=== PATIENT | female | born 1960 | race Caucasian/White ===

== ENCOUNTER 2023-12-29 07:58 | Emergency (ER) | payer OTHER, SELFPAY ==
[2023-12-29 08:11] VITALS: BP 137/86
--- NOTE | 2023-12-29 08:27 | ED.GENMED ---
History of Present Illness
<Telly Troncoso PA-C - Last Filed: 12/29/23 10:04>
General
Chief Complaint: Skin Surface Trauma
Source: patient
Time Seen by Provider: 12/29/23 08:30
Travel History
Have you had any contact with someone who has COVID-19?: No
Do you have any symptoms of coronavirus? Fever > 100 degrees, chills, cough, shortness of breath, sore throat, loss of taste or smell, muscle aches, or headache?: No
History of Present Illness
History of Present Illness:
63-year-old female presenting to the emergency department for evaluation after she excellently cut her left little finger on a slicer about 20 minutes prior to arrival to the emergency department. Patient is right-hand dominant. Tetanus vaccine is
up-to-date. No other injuries were sustained. Patient notes continued bleeding on arrival but states bleeding is controlled with pressure.
Past History
<Telly Troncoso PA-C - Last Filed: 12/29/23 10:04>
Past History
ED Past Medical History: None
ED Past Surgical History: None
Social History
Tobacco: Non-smoker
Alcohol: None
Drug: None
Personal:
Living: with family
Review of Systems
<Telly Troncoso PA-C - Last Filed: 12/29/23 10:04>
Review of Systems
All Other Systems: ROS reviewed and negative except as documented in HPI and ROS
Phy Exam
<Telly Troncoso PA-C - Last Filed: 12/29/23 10:04>
Physical Exam
Physical Exam:
GENERAL: Alert , in no apparent distress
EYE: conjunctiva clear
Head: Normocephalic atraumatic
NECK: Supple,
ENT: mmm.
LUNGS: no acute respiratory distress
NEUROLOGICAL: Alert and oriented
SKIN: Warm and dry, large skin avulsion/laceration to lateral aspect left little finger, moderate bleeding, lateral nail involved
MUSCULOSKELETAL: well perfused. Sensation diminished at the tip of the left
PSYCH: Normal and appropriate interaction.
Scores
<Telly Troncoso PA-C - Last Filed: 12/29/23 10:04>
Heart Failure Risk
Heart Failure Risk Score: Not Applicable
Heart Score for Chest Pain Patients
STEMI patient?: Not applicable
Withdrawal Assessment of Alcohol
Withdrawal Assessment Completed?: Not applicable
Course
<Telly Troncoso PA-C - Last Filed: 12/29/23 10:04>
Vital Signs
Initial and Last Documented VS:
Initial Vital Signs
Temp Pulse Resp BP Pulse Ox
98.1 F 76 14 137/86 96
12/29/23 08:11 12/29/23 08:11 12/29/23 08:11 12/29/23 08:11 12/29/23 08:11
Last Documented Vital Signs
Temp Pulse Resp BP Pulse Ox
98.1 F 76 14 137/86 96
12/29/23 08:11 12/29/23 08:11 12/29/23 08:11 12/29/23 08:11 12/29/23 08:11
<Michael Torres DO - Last Filed: 12/29/23 08:50>
Vital Signs
Initial and Last Documented VS:
Initial Vital Signs
Temp Pulse Resp BP Pulse Ox
98.1 F 76 14 137/86 96
12/29/23 08:11 12/29/23 08:11 12/29/23 08:11 12/29/23 08:11 12/29/23 08:11
Last Documented Vital Signs
Temp Pulse Resp BP Pulse Ox
98.1 F 76 14 137/86 96
12/29/23 08:11 12/29/23 08:11 12/29/23 08:11 12/29/23 08:11 12/29/23 08:11
Procedures
<Telly Troncoso PA-C - Last Filed: 12/29/23 10:04>
Laceration Closure
Left Fifth Finger:
Status of Wound: clean
Size of Wound in cm: 1.5
Description of Wound Edges: macerated
Preparation: cleaned with saline
Anesthesia: Digital-Regional
Revision/Debridement: minor revision
Type of Closure: single layer closure
Skin Closure Material: 5-0 nylon
Number of sutures: 6
<Telly Troncoso PA-C - Last Filed: 12/29/23 10:04>
MDM/Problems Addressed
Differential Diagnosis Includes:
Simple laceration but possibility for minor nerve involvement given the location of the laceration. Diminished sensation
MDM/Problems Addressed:
63-year-old female presenting to the ER for evaluation after lacerating right little finger. Laceration loosely approximated as above. The more proximal portion of the laceration was tacked down with the distal portion of the skin sutured at the
tip. Bleeding was well-controlled. Dressing applied. Patient given information for hand surgery to follow-up with. Prescription for Augmentin given. Advise she contact orthopedics today for an appointment. Aware of return precautions.
<Telly Troncoso PA-C - Last Filed: 12/29/23 10:04>
*Pulse Oximetry
Patient hypoxic: no
*Critical Care Note
Total Time (30-74mins, 75-104mins- exclusive of procedures): Not Applicable
ED Attending Note
<THOMAS Atkinson Last Filed: 12/29/23 10:04>
-
Portions of this chart may have been created with voice recognition software.� Occasional wrong word or��sound alike� substitutions may have occurred due to the inherent limitations of voice recognition software.
<Michael Torres, DO - Last Filed: 12/29/23 08:50>
ED Attending Note
Patient seen and examined by attending physician: Yes
I performed the substantive portion of visit, reviewed & personally made and approve the management plan that is documented in note by myself or JOCELYN.: Yes
ED Attending Note:
I have seen and evaluated the patient with a [id number] encounter. I have spoken to the advance practicer provider and involved in the medical history, the physical exam, medical decision making.
Evaluation and management service: agree unless noted differently below.
Results interpretation: agree unless noted differently below.
Focused HPI: 63-year-old female presenting with left pinky injury. Patient was using a food slicer and her finger got caught by accident. Tetanus is up-to-date.
Physical exam: Laceration to left pinky involving nailbed. Cap refill intact. Mild sensory deficit to distal pink
Medical Decision Making: We discussed the likelihood of nerve injury in the distal aspect of the pinky. Range of motion is intact. There is a large skin avulsion and the nailbed is involved. Will tach on the intact skin, dress it and have her
follow-up with Hand
Discharge Plan
Departure
Patient Disposition: Home (Routine Discharge)
Date of Disposition: 12/29/23
Time of Disposition: 09:00
Patient with high blood pressure during this ER visit?: No
Discharge Problem:
Laceration of left little finger
Instructions: Laceration Repair With Stitches (DC)
Prescriptions:
New
amoxicillin-pot clavulanate 875-125 mg tablet
1 tab PO BID 7 Days Qty: 14 0RF
Referrals:
Omar Love MD [Active] - (Hand)
Interventions
Interventions:
*Risk Screen - Suicide Last Done: 12/29/23 09:21
*General Assessment Last Done: 12/29/23 09:21
*Neglect/Abuse Screening Last Done: 12/29/23 09:21
ED- Fall Risk Assessment Last Done: 12/29/23 09:21
*ED COVID-19 Vaccine History Last Done: 12/29/23 08:25
*Nursing Disposition Last Done: 12/29/23 09:21
ED-Skin Assessment Last Done: 12/29/23 09:03
Discharge Date and Time
Discharge Date/Time: 12/29/23 09:22
Print Language: LITHUANIAN
== END 2023-12-29 09:22 | disposition home or self-care (01) ==
LOC: EMR 07:58
PROVIDERS: EMERGENCY PHYSICIAN Student in an Organized Health Care Education/Training Program; FAMILY PHYSICIAN Internal Medicine
DX: S61.317A Laceration without foreign body of left little finger with damage to nail, initial encounter (principal); W31.89XA Contact with other specified machinery, initial encounter
CPT/HCPCS: 99283; 12001